=== PATIENT | male | born 1980 | race Caucasian/White ===

== ENCOUNTER 2022-02-16 18:22 | Emergency (ER) | payer BC, SELFPAY ==
[2022-02-16 19:05] VITALS: BP 148/99; PULSE 62; RESP 17; TEMP 37.1; O2SAT 98; BMI 31.5
--- NOTE | 2022-02-16 19:18 | HMH.EDUTC ---
[facility] [place] Disposition Clinical Impression: Sinusitis Qualifiers: Sinusitis location: unspecified location Chronicity: acute Recurrence: non-recurrent Qualified Code(s): J01.90 - Acute sinusitis, unspecified Disposition: Home, Self-Care Condition on Discharge: Good Instructions: DI for Sinusitis Additional Instructions: Drink plenty of fluids. Take tylenol or ibuprofen for pain or fever. Take the medications as directed. Follow up with your regular doctor. GO TO THE ER FOR ANY WORSENING SYMPTOMS Prescriptions: methylPREDNISolone [Medrol] 4 mg PO DIRECTED 6 Days #21 packet Transmission Status: Received by [id number] guaiFENesin [Mucinex 600mg tablet] 1 - 2 tab PO BIDP PRN #30 tab PRN Reason: Congestion Transmission Status: Received by [id number] Azithromycin [Z-Dimas 250mg Tab*] 250 mg PO UD DOSE PK #6 tab Transmission Status: Received by [id number] Referrals: Provider,Referral, MD [Primary Care Provider] - Medical Decision Making - Medical Records Medical records reviewed: No: I reviewed the patient's medical records. - Blanye Inquiry Pt receiving controlled substance: No Vital Signs: 02/16/22 19:05 02/16/22 19:24 Temperature 98.7 F 98.7 F Temperature Source Temporal Artery Scan Pulse Rate 62 Pulse Rate [Left] 62 Respiratory Rate 17 17 Blood Pressure 148/99 H Blood Pressure [Left Arm] 148/99 H Blood Pressure Mean [Left Arm] 115 Blood Pressure Source [Left Arm] Automatic Cuff Blood Pressure Position [Left Arm] Sitting 02 Sat by Pulse Oximetry 98 Oxygen Delivery Method Room Air [facility] [place] HPI - General Stated complaint: runny nose Time Seen by Provider: 02/16/22 19:15 Mode of Arrival: Ambulatory Source of Information: Patient Limitations: No Limitations Description of Symptoms (Recalled from Triage Doc. by RN): Patient reports he has had sinus symtoms that consist of nasal drainage, throat drainage, headache and stuffy nose for two weeks now. Patient denies fever. He reports his has had same symptoms and was seen here last night HEENT Symptoms (Recalled from RN notes): Yes (headache, stuffy nose) Resp Symptoms (Recalled from RN notes): Yes (nasal and throat drainage) Skin Symptoms (Recalled from RN notes): No MS Symptoms (Recalled from RN notes): No Functional Status (Recalled from RN notes): na - History of Present Illness Provider Complaint: He reports that he has had sinus congestion and sinus infection symptoms for the past 2 week. s - Related Data Home Medications Medication Instructions Recorded Confirmed Atorvastatin Calcium [Lipitor 40mg 40 mg PO HS 02/16/22 02/16/22 Tablet*] Pantoprazole Sodium 40 mg PO DAILY 02/16/22 02/16/22 Previous Rx's Medication Instructions Recorded Azithromycin [Z-Dimas 250mg Tab*] 250 mg PO UD DOSE PK #6 tab 02/16/22 guaiFENesin [Mucinex 600mg tablet] 1 - 2 tab PO BIDP PRN #30 tab 02/16/22 methylPREDNISolone [Medrol] 4 mg PO DIRECTED 6 Days #21 02/16/22 packet Allergies Allergy/AdvReac Type Severity Reaction Status Date / Time No Known Allergies Allergy Verified 02/16/22 19:09 - Worker's Comp Is this a Worker's Comp case?: No [facility] History - Hepatitis A Screen Attestation statement:: This patient has been screened for Hepatitis A risk factors. I have reviewed the patient's past medical history: Yes ROS Obtained: Yes All systems reviewed & no additional complaints - Constitutional Constitutional: Denies chills, Denies fever(s), Reports poor appetite, Reports malaise - Eyes Eyes: Denies eye discharge - ENT Ears, Nose, Mouth, and Throat: Reports as per HPI - Cardiovascular Cardiovascular: Denies chest pain - Respiratory Respiratory: Denies chest congestion, Reports cough Physical Exam - General General appearance: alert, in no apparent distress - Head Head exam: atraumatic, normocephalic, normal inspection - Eye Eye exam: Present: normal appe
[2022-02-16 19:24] VITALS: BP 148/99; PULSE 62; RESP 17; TEMP 37.1
== END 2022-02-16 19:35 | disposition home or self-care (01) ==
PROVIDERS: Emergency Provider Nurse Practitioner Family
DX: J01.90 Acute sinusitis, unspecified (principal)
CPT/HCPCS: 99212; G0463

== ENCOUNTER 2022-07-22 16:49 | Emergency (ER) | payer BC, SELFPAY ==
[2022-07-22 17:20] VITALS: BP 131/87; PULSE 83; RESP 18; TEMP 37.1; O2SAT 98; BMI 30.7
--- NOTE | 2022-07-22 17:27 | XR_ITS ---
PROCEDURE INFORMATION: Exam: XR Chest Exam date and time: 07/22/2022 5:21 PM Age: 41 years old Clinical indication: Cough TECHNIQUE: Imaging protocol: Radiologic exam of the chest. Views: 2 views. COMPARISON: No relevant prior studies available. FINDINGS: Lungs: Unremarkable. No consolidation. Pleural spaces: Unremarkable. No pleural effusion. No pneumothorax. Heart/Mediastinum: Unremarkable. No cardiomegaly. Bones/joints: Unremarkable. IMPRESSION: No acute findings.
--- NOTE | 2022-07-22 17:39 | EXP.UTC ---
Discharge Plan Disposition Patient Disposition: Home, Self-Care Condition: Good Prescriptions Prescriptions: New azithromycin [azithromycin] 250 mg tablet 250 mg PO DIRECTED Qty: 6 0RF Rx Instructions: Take two (2) tablets on day #1, then one (1) tablet day #2 thru #5 No Action atorvastatin 40 MG tablet 40 mg PO HS pantoprazole 40 MG tablet,delayed release (DR/EC) 40 mg PO DAILY azithromycin 250 MG tablet 250 mg PO UD DOSE PK Qty: 6 0RF Rx Instructions: Take two (2) tablets today, then one (1) tablet days #2 thru #5 methylprednisolone 4 MG tablets,dose pack 4 mg PO DIRECTED 6 Days Qty: 21 0RF guaifenesin 600 MG tablet extended release 12hr 1 - 2 tab PO BIDP PRN (Reason: Congestion) Qty: 30 0RF Referrals Follow up/Referrals: Provider,Referral, MD [Primary Care Provider] - See instructions Activity Restrictions/Add. Instructions Additional Instructions/Restrictions: Start antibiotic today. Be sure to complete entire prescription even if feeling better Tylenol and ibuprofen as needed for pain or fever Humidifier/vaporizer/hot steamy shower Follow-up with primary care tomorrow. Follow-up immediately in the ER of the [facility] for new or worsening symptoms or no noticeable improvement over the next 48-72 hours. Stop smoking Clinical Impressions Clinical Impression: Bronchitis Instructions Patient Instructions: Acute Bronchitis Discharge ED Provider: Tobi ([facility])Arcelia [place] HPI General Stated complaint: tamika Mode of Arrival: Ambulatory Source of Information: Patient Limitations: No Limitations Time Seen by Provider: 07/22/22 17:40 Description of Symptoms (Recalled from Triage Doc. by RN): PATIENT C/O CONGESTION AND COUGH SINCE SUNDAY HEENT Symptoms (Recalled from RN notes): No Resp Symptoms (Recalled from RN notes): Yes Skin Symptoms (Recalled from RN notes): No MS Symptoms (Recalled from RN notes): No Functional Status (Recalled from RN notes): WNL History of Present Illness Provider Complaint: 41 yr old male presents for cough, soa, wheezing and congestion since and seems to be worsening Related Data Home Medications Medication Instructions Recorded Confirmed atorvastatin 40 mg tablet 40 mg PO HS Cholesterol 02/16/22 02/16/22 pantoprazole 40 mg tablet,delayed 40 mg PO DAILY acid reflux 02/16/22 02/16/22 release Previous Rx's Medication Instructions Recorded azithromycin 250 mg tablet 250 mg PO UD DOSE PK #6 tabs 02/16/22 guaifenesin 600 mg tablet, 1 - 2 tab PO BIDP PRN Congestion 02/16/22 extended release 12 hr #30 tabs methylprednisolone 4 mg tablets in 4 mg PO DIRECTED 6 days #21 02/16/22 a dose pack packets azithromycin 250 mg tablet 250 mg PO DIRECTED #6 tabs 07/22/22 Allergies Allergy/AdvReac Type Severity Reaction Status Date / Time No Known Allergies Allergy Verified 02/16/22 19:09 Worker's Comp Is this a Worker's Comp case?: No [facility] Disclaimer: The information contained in this section may have been updated after the patient was seen, as this information can be updated by other users. 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) Smoking Status: Unknown if ever smoked alcohol intake: never current occupational status: other Travel in the last 8 weeks: None ROS Obtained: Yes All systems reviewed & no additional complaints except as documented Constitutional Constitutional: Reports system reviewed and no additional complaints, except as documented and Reports as per HPI Eyes Eyes: Reports system reviewed and no additional complaints, except as documented ENT Ears, Nose, Mouth, and Throat: Reports system reviewed and no additional complaints, except as documented and Reports nasal congestion Cardiovascular Cardiovascular:
[2022-07-22 18:00] VITALS: BP 131/87; PULSE 83; RESP 18; TEMP 37.1; O2SAT 98
== END 2022-07-22 18:02 | disposition home or self-care (01) ==
PROVIDERS: Emergency Provider Nurse Practitioner Family
DX: J40 Bronchitis, not specified as acute or chronic (principal)
CPT/HCPCS: 71046; 99212; G0463

== ENCOUNTER 2022-11-23 17:14 | Emergency (ER) | payer BC, SELFPAY ==
[2022-11-23 18:00] VITALS: BP 141/84; PULSE 81; RESP 20; TEMP 36.6; O2SAT 96; BMI 31.5
--- NOTE | 2022-11-23 18:11 | EXP.UTC ---
Discharge Plan Disposition Patient Disposition: Home, Self-Care Condition: Good Prescriptions Prescriptions: New benzonatate [benzonatate] 100 mg capsule 100 mg PO TIDP PRN (Reason: Cough) Qty: 30 0RF methylprednisolone 4 mg Tablets,Dose Pack 4 mg PO DIRECTED Qty: 21 0RF amoxicillin-pot clavulanate 875-125 mg Tablet 1 tab PO Q12H Qty: 20 0RF No Action atorvastatin 40 MG tablet 40 mg PO HS pantoprazole 40 MG tablet,delayed release (DR/EC) 40 mg PO DAILY Referrals Follow up/Referrals: Provider,Referral, MD [Primary Care Provider] - See instructions Activity Restrictions/Add. Instructions Additional Instructions/Restrictions: Drink plenty of fluids. Take tylenol or ibuprofen for pain or fever. Take the medications as directed. Follow up with your regular doctor. GO TO THE ER FOR ANY WORSENING SYMPTOMS Clinical Impressions Clinical Impression: Sinusitis Instructions Patient Instructions: Sinusitis, DI for Sinusitis Discharge ED Provider: Hernandez Rush [facility] General Stated complaint: cough [place] Time Seen by Provider: 11/23/22 18:11 History of Present Illness Provider Complaint: He c/o sore throat, left ear pain, and left sided sinus congestion for the past 3 days. Related Data Home Medications Medication Instructions Recorded Confirmed atorvastatin 40 mg tablet 40 mg PO HS Cholesterol 02/16/22 11/23/22 pantoprazole 40 mg tablet,delayed 40 mg PO DAILY acid reflux 02/16/22 11/23/22 release Previous Rx's Medication Instructions Recorded amoxicillin 875 mg-potassium 1 tab PO Q12H #20 tabs 11/23/22 clavulanate 125 mg tablet benzonatate 100 mg capsule 100 mg PO TIDP PRN Cough #30 caps 11/23/22 methylprednisolone 4 mg tablets in 4 mg PO DIRECTED #21 tabs 11/23/22 a dose pack Allergies Allergy/AdvReac Type Severity Reaction Status Date / Time No Known Allergies Allergy Verified 11/23/22 18:16 [facility] Disclaimer: The information contained in this section may have been updated after the patient was seen, as this information can be updated by other users. 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 History of gastroesophageal reflux (GERD) Hyperlipidemia Social History (Reviewed 11/23/22 @ 19:00 by POLO Arechiga Smoking Status: Unknown if ever smoked alcohol intake: never current occupational status: other Travel in the last 8 weeks: None ROS Obtained: Yes All systems reviewed & no additional complaints except as documented Constitutional Constitutional: Reports poor appetite Eyes Eyes: Reports system reviewed and no additional complaints, except as documented ENT Ears, Nose, Mouth, and Throat: Reports as per HPI Cardiovascular Cardiovascular: Reports system reviewed and no additional complaints, except as documented and Denies chest pain Respiratory Respiratory: Denies shortness of breath, Denies chest congestion, Reports cough, Denies stridor and Denies wheezing Gastrointestinal Gastrointestingal: Reports system reviewed and no additional complaints, except as documented; Denies abdominal pain, diarrhea or vomiting Musculoskeletal Musculoskeletal: Reports system reviewed and no additional complaints, except as documented and Denies arthralgias Integumentary/Breasts Skin/Breast: Reports system reviewed and no additional complaints, except as documented and Denies rash Neurologic Neurologic: Denies paresthesias Allergic/Immunologic Allergic/Immunologic: Denies wheezing Physical Exam General General appearance: alert and in no apparent distress Eye Eye exam: Present normal appearance, PERRL and EOMI ENT ENT exam: Present mucous membranes moist and normal external ear exam Expanded ENT Exam External ear exam: Present normal external inspection TM/Canal exam: Bilateral TM: erythema and bulging Nose exam: Absent sinus tenderness Nasal speculum exam: Bilateral: normal Mouth exam: Pres
[2022-11-23 18:17] LABS: UTC Strep Screen (Rapid) Negative (Negative)
[2022-11-23 18:39] VITALS: BP 141/84; PULSE 81; RESP 20; TEMP 36.6; O2SAT 96
== END 2022-11-23 18:39 | disposition home or self-care (01) ==
PROVIDERS: Emergency Provider Nurse Practitioner Family
DX: J01.90 Acute sinusitis, unspecified (principal)
CPT/HCPCS: 87880; 99212; 99214; G0463

== ENCOUNTER 2023-03-25 13:05 | Emergency (ER) | payer BC, SELFPAY ==
--- NOTE | 2023-03-25 13:20 | EXP.UTC ---
Discharge Plan Disposition Patient Disposition: Home, Self-Care Condition: Good Prescriptions Prescriptions: New cyclobenzaprine 10 mg Tablet 10 mg PO BID PRN (Reason: Muscle Spasm) Qty: 20 0RF methylprednisolone 4 mg Tablets,Dose Pack 4 mg PO DIRECTED Qty: 21 0RF No Action benzonatate [benzonatate] 100 mg capsule 100 mg PO TIDP PRN (Reason: Cough) Qty: 30 0RF methylprednisolone 4 mg Tablets,Dose Pack 4 mg PO DIRECTED Qty: 21 0RF amoxicillin-pot clavulanate 875-125 mg Tablet 1 tab PO Q12H Qty: 20 0RF atorvastatin 40 MG tablet 40 mg PO HS pantoprazole 40 MG tablet,delayed release (DR/EC) 40 mg PO DAILY Referrals Follow up/Referrals: Provider,Referral, MD [Primary Care Provider] - See instructions Activity Restrictions/Add. Instructions Additional Instructions/Restrictions: Go home and rest. It would be best if you rested tomorrow too. No heavy lifting. No twisting. Take the oral medications as directed. The muscle relaxer (cyclobenzaprine--Flexeril) will make you drowsy, so don't drive or operate heavy machinery after taking it. Don't start the oral steroids (medrol dose pack) until tomorrow, since you had the shots in here today. Follow up with your regular doctor. GO TO THE ER FOR ANY WORSENING SYMPTOMS OR CONCERN, ESPECIALLY BOWEL OR BLADDER ISSUES, SADDLE AREA NUMBNESS, FEVER, ETC Clinical Impressions Clinical Impression: Low back pain with left-sided sciatica Stand Alone Forms Stand Alone Forms: Work/School Release Discharge ED Provider: Hernandez Rush [facility] General Stated complaint: lower back pain, unknown origin Time Seen by Provider: 03/25/23 13:20 History of Present Illness Provider Complaint: He states that for the past 1 week he has had low back pain that radiates down his right leg. He denies any recent falls or injury. He denies any saddle area numbness. He denies any bowel or bladder problems. Related Data Home Medications Medication Instructions Recorded Confirmed atorvastatin 40 mg tablet 40 mg PO HS Cholesterol 02/16/22 11/23/22 pantoprazole 40 mg tablet,delayed 40 mg PO DAILY acid reflux 02/16/22 11/23/22 release Previous Rx's Medication Instructions Recorded amoxicillin 875 mg-potassium 1 tab PO Q12H #20 tabs 11/23/22 clavulanate 125 mg tablet benzonatate 100 mg capsule 100 mg PO TIDP PRN Cough #30 caps 11/23/22 methylprednisolone 4 mg tablets in 4 mg PO DIRECTED #21 tabs 11/23/22 a dose pack cyclobenzaprine 10 mg tablet 10 mg PO BID PRN Muscle Spasm #20 03/25/23 tabs methylprednisolone 4 mg tablets in 4 mg PO DIRECTED #21 tabs 03/25/23 a dose pack Allergies Allergy/AdvReac Type Severity Reaction Status Date / Time No Known Allergies Allergy Verified 11/23/22 18:16 [facility] Disclaimer: The information contained in this section may have been updated after the patient was seen, as this information can be updated by other users. 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 History of gastroesophageal reflux (GERD) Hyperlipidemia Social History Smoking Status: Unknown if ever smoked alcohol intake: never current occupational status: other Travel in the last 8 weeks: None ROS Obtained: Yes All systems reviewed & no additional complaints except as documented Constitutional Constitutional: Denies chills and Denies fever(s) Eyes Eyes: Denies eye discharge ENT Ears, Nose, Mouth, and Throat: Denies dizziness, Denies otalgia, Denies neck pain and Denies sore throat Cardiovascular Cardiovascular: Denies chest pain Respiratory Respiratory: Denies shortness of breath, Denies chest congestion, Denies cough, Denies stridor and Denies wheezing Gastrointestinal Gastrointestingal: Denies nausea or vomiting Musculoskeletal Musculoskeletal: Reports as per HPI and Denies neck pain Integumentary/Breasts Skin/B
[2023-03-25 13:25] VITALS: BP 112/86; PULSE 74; RESP 20; TEMP 36.8; O2SAT 96; BMI 31.5
[2023-03-25 13:44] VITALS: BP 112/86; PULSE 74; RESP 20; TEMP 36.8; O2SAT 96
== END 2023-03-25 13:56 | disposition home or self-care (01) ==
PROVIDERS: Emergency Provider Nurse Practitioner Family
DX: M54.42 Lumbago with sciatica, left side (principal); K21.9 Gastro-esophageal reflux disease without esophagitis; E78.5 Hyperlipidemia, unspecified
CPT/HCPCS: 96372; 99212; 99214; G0463

== ENCOUNTER 2023-11-11 08:59 | Emergency (ER) | payer BC, SELFPAY ==
[2023-11-11 09:10] VITALS: BP 130/82; PULSE 78; RESP 18; TEMP 36.9; O2SAT 97; BMI 28.3
--- NOTE | 2023-11-11 09:26 | ED_ITS ---
Discharge Plan Disposition Patient Disposition: Home, Self-Care Condition: Good Prescriptions Prescriptions: New benzonatate 100 mg capsule 100 mg PO TID PRN (Reason: cough) Qty: 30 0RF methylprednisolone [Medrol (Dimas)] 4 mg tablets,dose pack See Rx Instructions .Route .COMPLEX 6 Days Qty: 21 0RF Rx Instructions: taper pack; No Action atorvastatin 40 MG tablet 40 mg PO HS pantoprazole 40 MG tablet,delayed release (DR/EC) 40 mg PO DAILY Referrals Follow up/Referrals: Provider,Referral, [Primary Care Provider] - See instructions Activity Restrictions/Add. Instructions Additional Instructions/Restrictions: *Monitor Temp, Over the counter Motrin or Tylenol as directed/as needed Tylenol every 4 hours and Motrin every 6 hours (as long as your family doctor has told you that you can take it) for fever or pain. and straight to ER if unable to lower temp less than 101.0 after medication given *Warm salt water gargles may help to soothe the throat *Throat Lozenges? *Warm fluids like tea with honey may help to soothe the throat? *Sleep elevated *Humidifier/Vaporizer Your throat swab was sent for culture. Those results are typically sent to your primary care. Be sure to follow up in 2-3 days with your family doctor/primary care physician if no improvement so they can review those result and treat if necessary. If you don?t have a primary care doctor, I recommend you get one but in the mean time, you will have to return to a walk in clinic Follow up IMMEDIATELY for new or worsening symptoms or no Noticeable improvement over the next 48-72 hours. 911 for difficulty breathing or swallowing Clinical Impressions Clinical Impression: Allergic rhinitis Instructions Patient Instructions: DI for Allergic Rhinitis, Allergic Rhinitis Discharge ED Provider: Le Asencio [facility] General Stated complaint: congestion,headache Mode of Arrival: Ambulatory Source of Information: Patient Limitations: No Limitations Time Seen by Provider: 11/11/23 09:27 Description of Symptoms (Recalled from Triage Doc. by RN): PATIENT C/O CONGESTION, HEADACHE, BODY ACHES AND CHILLS X 3 DAYS HEENT Symptoms (Recalled from RN notes): Yes Resp Symptoms (Recalled from RN notes): No Skin Symptoms (Recalled from RN notes): No MS Symptoms (Recalled from RN notes): No Functional Status (Recalled from RN notes): WNL History of Present Illness Provider Complaint: Patient states that he hasnt felt well for for the last 3-4 days States that he has been nasal congestion, chills, body aches, headache and scratchy throat but no fever, States that today his throat was hurting worse from all the drainage so he came in to get checked Related Data Home Medications Medication Instructions Recorded Confirmed atorvastatin 40 mg tablet 40 mg PO HS Cholesterol 02/16/22 11/11/23 pantoprazole 40 mg tablet,delayed 40 mg PO DAILY acid reflux 02/16/22 11/11/23 release Previous Rx's Medication Instructions Recorded benzonatate 100 mg capsule 100 mg PO TID PRN cough #30 caps 11/11/23 methylprednisolone 4 mg tablets in See Rx Instructions .Route 11/11/23 a dose pack (Medrol (Dimas)) .COMPLEX 6 days #21 tabs Allergies Allergy/AdvReac Type Severity Reaction Status Date / Time No Known Allergies Allergy Verified 11/23/22 18:16 Worker's Comp Is this a Worker's Comp case?: No [facility] Disclaimer: The information contained in this section may have been updated after the patient was seen, as this information can be updated by other users. 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 History of gastroesophageal reflux (GERD) Hyperlipidemia Social History Smoking Status: Unknown if ever smoked alcohol intake: never current occupational status: other Travel in the last 8 weeks: None ROS Obtained: Yes All systems reviewed & no additional complaints except as documented and Yes Systems reviewed as appropriate & no additional complaints except as documented Constitutional Constitutional: Reports system reviewed and no additional complaints, except as documented, Reports as per HPI, Reports body ache, Reports chills and Reports headache(s) ENT Ears, Nose, Mouth, and Throat: Reports system reviewed and no additional complaints, except as documented, Reports as per HPI, Reports headache(s), Reports nasal congestion, Reports nasal discharge and Reports sore throat Cardiovascular Cardiovascular: Reports system reviewed and no additional complaints, except as documented and Reports as per HPI Respiratory Respiratory: Reports system reviewed and no additional complaints, except as documented and Reports as per HPI Gastrointestinal Gastrointestingal: Reports system reviewed and no additional complaints, except as documented and as per HPI Neurologic Neurologic: Reports headache(s) Physical Exam General General appearance: alert and in no apparent distress ENT ENT exam: Present mucous membranes moist Expanded ENT Exam Nose exam: Absent sinus tenderness Throat exam: Present other (Pharyngeal erythema noted with PND) Respiratory Respiratory exam: Present normal lung sounds bilaterally; Absent respiratory distress or wheezes Cardiovascular Cardiovascular exam: Present regular rate, normal rhythm and normal heart sounds Neurological Exam Neurological exam: Present alert, oriented X3 and normal gait Medical Decision Making Blayne Inquiry Pt receiving controlled substance: No Blay[place] was queried for this patient: No Vital Signs: 11/11/23 09:10 Temperature 98.5 F Temperature Source Oral Pulse Rate [Left Brachial] 78 Respiratory Rate 18 Blood Pressure [Left Arm] 130/82 Blood Pressure Mean [Left Arm] 98 Blood Pressure Source [Left Arm] Automatic Cuff Blood Pressure Position [Left Arm] Sitting 02 Sat by Pulse Oximetry 97 Oxygen Delivery Method Room Air Lab Data Lab results reviewed: Yes I reviewed the patient's lab results.
[2023-11-11 09:43] LABS: UTC Influenza A Antigen Negative (Negative); UTC Influenza B Antigen Negative (Negative); UTC Strep Screen (Rapid) Negative (Negative)
[2023-11-11 09:44] VITALS: BP 130/82; PULSE 78; RESP 18; TEMP 36.9; O2SAT 97
== END 2023-11-11 09:46 | disposition home or self-care (01) ==
PROVIDERS: Emergency Provider Nurse Practitioner
DX: J30.9 Allergic rhinitis, unspecified (principal); R51.9 Headache, unspecified; R07.0 Pain in throat; R09.82 Postnasal drip; R09.81 Nasal congestion; K21.9 Gastro-esophageal reflux disease without esophagitis; E78.5 Hyperlipidemia, unspecified
CPT/HCPCS: 87804; 87880; 99212; 99214; G0463

== ENCOUNTER 2024-05-09 09:25 | Outpatient (CLI) | payer BC, SELFPAY ==
[2024-05-09 09:55] LABS: Basophils # 0.1 K/mm3 (0-0.2); Basophils % 1.2 % (0.1-2.0); Eosinophils # 0.1 K/mm3 (0.0-0.4); Eosinophils % 1.4 % (0.1-12.0); Hematocrit 48.8 % (42.0-52.0); Hemoglobin 15.7 g/dL (14.1-18.0); Lymphocytes # 2.5 K/mm3 (0.7-4.5); Lymphocytes % 31.7 % (10-50); Mean Corpuscular HGB Conc 32.2 g/dL (31.8-35.4); Mean Corpuscular Hemoglobin 28.3 pg (27.0-31.2); Mean Corpuscular Volume 87.8 fl (80-94); Mean Platelet Volume 7.5 fl (7.4-10.4); Monocytes # 0.6 K/mm3 (0.1-1.0); Neutrophils # 4.7 K/mm3 (1.8-7.8); Neutrophils % 58.8 % (37.0-80.0); Platelet Count 353 K/mm3 (142-424); Red Blood Count 5.56 M/mm3 (4.60-6.20); Red Cell Distribution Width 13.9 % (11.5-17.5)
[2024-05-09 10:02] LABS: Hemoglobin A1C 5.6 % (4.0-6.0)
[2024-05-09 10:09] LABS: Alanine Aminotransferase 42 U/L (12-78); Albumin Level 4.3 g/dl (3.5-5.0); Albumin/Globulin Ratio 1.5 (1.1-1.8); Alkaline Phosphatase 71 U/L (38-126); Anion Gap 5.3 mEq/L (5-15); Aspartate Amino Transferase 30 U/L (17-59); Bilirubin,Total 0.8 mg/dl (0.2-1.3); Blood Urea Nitrogen 12 mg/dl (9-20); Calcium 9.2 mg/dl (8.4-10.2); Carbon Dioxide 32 mmol/L (22.0-30.0); Chloride 104 mmol/L (98-107); Chol/HDL Ratio 3.8 (1-3.5); Cholesterol 178 mg/dl (140-200); Estimated Glomerular Filt Rate 91 ml/min (>60); GFR (African American) 110 ML/MIN (>60); Globulin 2.8 g/dL (1.3-3.2); Glucose 95 mg/dl (74-100); HDL Cholesterol 47 mg/dl (40-60); Potassium 4.3 mmoL/L (3.5-5.1); Sodium 137 mmol/L (136-145); Total Protein,Serum 7.1 g/dl (6.3-8.2); Triglycerides 176 mg/dl (30-150); VLDL Cholesterol 35 mg/dL (0-40)
[2024-05-09 10:21] LABS: Direct LDL Cholesterol 90.95 mg/dL (100-129)
[2024-05-09 10:39] LABS: Prostate Specific Ag Screen 1.1 ng/ml (0.0-4.0); Thyroid Stimulating Hormone 1.02 uIU/mL (0.465-4.68)
[2024-05-09 14:34] LABS: HIV (1&2) Antibody Rapid NONREACTIVE (NONREACTIVE)
[2024-05-09 15:19] LABS: 25-OH Vitamin D, Total 22.1 ng/mL (30-100)
[2024-05-10 08:17] LABS: HCV Ab Non Reactive (Non Reactive)
== END 2024-05-09 23:59 | disposition home or self-care (01) ==
LOC: LAB 09:27
PROVIDERS: PCP Student in an Organized Health Care Education/Training Program; Visit Provider Student in an Organized Health Care Education/Training Program
DX: Z13.21 Encounter for screening for nutritional disorder (principal); Z13.29 Encounter for screening for other suspected endocrine disorder; Z11.59 Encounter for screening for other viral diseases; Z12.5 Encounter for screening for malignant neoplasm of prostate; Z11.4 Encounter for screening for human immunodeficiency virus [HIV]; E78.5 Hyperlipidemia, unspecified; Z13.1 Encounter for screening for diabetes mellitus
CPT/HCPCS: 36415; 80050; 80053; 80061; 82306; 83036; 84443; 85025; 86803; 87389; G0103

== ENCOUNTER 2024-11-02 16:48 | Outpatient (CLI) | payer BC, SELFPAY ==
--- NOTE | 2024-11-02 17:02 | XR_ITS ---
PROCEDURE INFORMATION: Exam: XR Lumbosacral Spine Exam date and time: 11/02/2024 4:54 PM Age: 44 years old Clinical indication: Low back pain TECHNIQUE: Imaging protocol: Radiologic exam of the lumbosacral spine. Views: 2 or 3 views. COMPARISON: No relevant prior studies available. FINDINGS: Bones/joints: Mild L5 on S1 anterolisthesis. Chronic L5 pars interarticularis defects. Degenerative disc and joint space changes most pronounced at L5/S1. Vertebral body heights grossly preserved. Soft tissues: Unremarkable. IMPRESSION: Degenerative changes with chronic L5/S1 spondylolisthesis.
== END 2024-11-02 23:59 | disposition home or self-care (01) ==
LOC: RAD 16:50
PROVIDERS: Visit Provider Student in an Organized Health Care Education/Training Program
DX: M43.16 Spondylolisthesis, lumbar region (principal); M54.50 Low back pain, unspecified
CPT/HCPCS: 72100

== ENCOUNTER 2024-12-26 10:49 | Outpatient (RCR) | payer BC, SELFPAY ==
--- NOTE | 2024-12-26 14:38 | HMH.PTOPEV ---
PT Outpatient Evaluation Rehab PT Outpatient Evaluation Start: 12/26/24 10:58 Freq: Status: Active Protocol: Document 12/26/24 10:58 KRISTAN (Rec: 12/26/24 14:38 KRISTAN [id number]) E-signed By Ector Grier, PT Outpatient Therapy Subjective History Subjective History Alverto is a 44 y/o male who presents with low back pain. ~ 1.5 years ago, he hurt his back bending down and could barely walk. Treated at urgent care with steroids/anti- inflammatories and it came back ~1 month ago. X-Ray showed spondylolisthesis L5/S1 . Pain greatly depends on activity level at work, especially bending, lifting, and stepping up/down. 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 His pain goes down his legs, usually stops around knees but can go down to ankle and more on R side. He states he cannot sit on couch as it is deep seated, and has the worst pain with that. States during lifting or carrying stuff, his back pain can get up to 10 /10 for a few seconds and feels like it gives out . Kevin snita on the R. Pt states that his goals for therapy include managing the pain so he can work without pain. Chief Complaint Pain Symptom Type Sharp,Dull,Numbness,Shooting Symptoms Relieved By Rest/Positioning Symptoms Aggravated By Sitting,Bending/Stooping, Physical Activity Prior Functional Limitations None Current Functional Limitations Reaching,Lifting,Housework, Sitting,Squatting,Bending/ Stooping Symptom Description Activity Dependent Level of pain today (0-10) 0 Pain scale - at its best (0-10) 0 Pain scale - at its worst (0-10) 10 Lumbopelvic Eval Palapation tenderness right paraspinal tenderness Yes: 1-2/4 TTP Lumbar/Sacral Palpation Findings Muscle Guarding Lumbar/Sacral Palpation Overall Comment Tender R paraspinals ~L4-L5 Range of Motion Lumbar Spine Active Flexion Range of 0-95 Motion (degrees) Lumbar Spine Active Extension Range of 0-25 Motion (degrees) Left Lumbar Spine Lateral Flexion Active 0-10 Range of Motion (degrees) Right Lumbar Spine Lateral Flexion 0-20 Active Range of Motion (degrees) Lumbar Spine ROM Limitations Soft Tissue Tightness Manual Muscle Test Bilateral Knee Extension Strength Grade 5 Normal Knee Flexion Strength Grade 5 Normal Hip Flexion Strength Grade 5 Normal Hip Abduction Strength Grade 5 Normal Hip Adduction Strength Grade 5 Normal Ankle Dorsiflexion Strength Grade 5 Normal Special Tests Hip Scouring (Quadrant) Test Negative Left,Negative Right Hip Perry (MIRNA) Test Negative Left,Negative Right Sciatic Nerve Tension Test Negative Left,Negative Right Bilateral Straight Leg Raise Test Negative Sacroiliac Joint Compression Test Negative Left,Negative Right Sacroiliac Joint Distraction Test Negative Left,Negative Right Lumbar Long [place]clay Distraction Test/Manual Negative Traction Oswestry Index Section 1 Pain Intensity The pain comes and goes and is severe Section 2 Personal Care (Washing,Dresing) increase the pain and I find it necessary to change my way of doing it Section 3 Lifting I can lift heavy weights, but it gives me extra pain Section 4 Walking I have some pain when walking but it does not increase with distance Section 5 Sitting I can sit in my favorite chair for as long as I like Section 6 Standing I have some pain on standing, but it does not increase with time Section 7 Sleeping Because of my pain, my normal night's sleep is less than 6 hours sleep Section 8 Social Life My social life is normal and gives me no extra pain Section 9 Traveling I get no pain when traveling Section 10 Changing Degreee of Pain My pain is neither getting better or worse Score and Risk Level Oswestry Sc 16 Oswestry Risk Level Moderate Disability Miscellaneous Dx PT Eval Objective Objective Supine R Hip Flexion PROM and R Hip ABD MMT provoked R sided back pain Outpatient Therapy Assessment Impairments Problems/Impairmments Palpation Tenderness,Impaired Range of Motion,Impaired Sitting,Impaired Squatting, Impaired Bending,Impaired Work Activities,Subjective C/O Pain Prognosis Rehab Potential Good Comment Patient presents with signs and symptoms consistent with R sided low back pain with radiating symptoms. Imaging showed spondylolisthesis of L5 /S1. Pain and sx appear to worsen with lumbar flexion activities. Patient impairments include back and hip musculature tightness and weakness due to pain. 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 Clinical Impression Consistent with Diagnosis Yes Additional details: M54.50 Low back pain, unspecified Short Term Goals Number of Weeks 4 Decreased Palpation Tenderness Yes: 0/4 TTP R paraspinals lumbar region Increase Range of Motion Yes: B lateral flexion increase 5 deg Restore Ability to Lift Objects to Waist Yes: Pain <5/10 at worst when Level picking up objects at work Improve Tolerance to Work Activities Yes: Pain <8/10 at worst during 1 physically demanding work week Improve Oswestry Score Yes: 13 Decrease Subjective C/O Pain Yes: Worst 8/10 Patient to be Ind w/ Advanced HEP Yes Intermediate Goals Number of Weeks 8 Increase Range of Motion Yes: Lateral flexion increase in 10 deg AROM Increase Ability to Sit Yes: Sit on couch at home for 30 min with <5/10 pain Restore Ability to Lift Objects to Yes: Pain <3/10 lifting Shoulder Level objects at end of work week Improve Tolerance to Work Activities Yes: Pain at worst 5/10 after physically demanding work week Improve Oswestry Score Yes: 10 Decrease Subjective C/O Pain Yes: Worst 5/10 Patient to be Ind w/ Advanced HEP Yes Outpatient Therapy Plan of Care Treatment Plan May Include Therapeutic Exercise Including Home Yes Exercise Program Manual Therapy Techniques Yes Neuromuscular Re-education Yes Therapeutic Activities to Return to Yes Previous Functional/Work Level Gait Training Yes ADL/Self Care Education Yes Mechanical Traction Yes Dry Needling Yes Thermal Modalities Yes Electrical Stimulation Yes Ultrasound/Phonophoresis Yes Iontophoresis Yes Eval/Re-Eval Yes Frequency Times per week 2-3 Duration Number of Weeks 8 Addendums This patient is a candidate for social No or vocational rehab? Patient/Guardian verbally acknowledges Yes understanding of treatment program and consents to further treatment? Patient/Guardian verbally acknowledges Yes understanding of diagnosis, prognosis and goals for treatment? Eval Complexity PT Charges 65099 - High Complexity Shoulder/Elbow Eval Shoulder Objective Measurements Elbow Objective Measurements PHYSICIAN CERTIFICATION: I certify the specified therapy services for Alverto Thomson are required, authorized, and reviewed every 30 days.
== END 2024-12-26 23:59 | disposition home or self-care (01) ==
LOC: PT 10:49
PROVIDERS: PCP Nurse Practitioner Family; Visit Provider Internal Medicine
DX: M54.42 Lumbago with sciatica, left side (principal)
CPT/HCPCS: 97163

== ENCOUNTER 2025-02-06 08:00 | Outpatient (RCR) | payer BC, SELFPAY ==
--- NOTE | 2025-01-30 08:52 | HMH.RHREAS ---
Rehab Reassessment Rehab OP Re-assessment Start: 01/16/25 10:18 Freq: Status: Active Protocol: Document 01/30/25 08:28 LOKI (Rec: 01/30/25 08:52 LOKI [id number]) E-signed By Sathish Becerar, PT Oswestry Index Section 1 Pain Intensity The pain comes and goes and is moderate Section 2 Personal Care ( increase the pain, but I manage not to change my way of Washing,Dresing) doing it Section 3 Lifting lifting heavy weights off the floor, but I can manage if they are Section 4 Walking I have some pain when walking but it does not increase with distance Section 5 Sitting I can sit in any chair for as long as I like Section 6 Standing I can stand as long as I want without pain Section 7 Sleeping I get pain in bed, but it does not prevent me from sleeping well Section 8 Social Life My social life is normal and gives me no extra pain Section 9 Traveling I get no pain when traveling Section 10 Changing Degreee of My pain fluctuates, but overall is definitely getting Pain better Score and Risk Level Oswestry Sc 10 Oswestry Risk Level Mild Disability Rehab Re-assessment Subjective Subjective Pt presents for reassessment this date. He reports 20- 30% improvement this date. Reports that he still has episodes of 10/10 pain, however they are becoming less frequent. Pt reports that he does his home exercises regularly and can definitely see that they are helping. The pt reports that he has been able to do his normal job duties but still reports intense pain, especially at the end of the day. Pt reports that he can sit as long as he would like without any pain. The pt reports that he would like to continue with PT. Objective Objective Notes MIGEL: 16 (10 on IE) TTP: 2/4 to R side Lumbar Paraspinals ROM - Lumbar flexion: 0-95 - Lumbar Extension: 0-25 - Lumbar Lateral flexion: R 15 L 25 Assessment Progress Assessment Slower Than Expected Assessment Notes The pt has undergone one month of skilled PT, however, he has only attended one treatment visit prior to this reassessment. Pt is responding well to home exercises, however he has not had enough direct care to showcase drastic improvements thus far. Pt has shown improvement in his MIGEL score, slight improvements in lumbar ROM and frequency of pain. The pt continues to present below his normal baseline and would continue to benefit from skilled PT to address his remaining impairments and to promote a return to his PLOF. Patient goals met ST,5,7 LT,5 Plan Plan Continue as per initial POC. Trial Lumbar Traction. Frequency of Therapy 1-2/week Duration of therapy 4 weeks Time and Billing Re-Eval Time 10 Re-Eval Billing 1 Units Charge for PT Yes reassessment? PHYSICIAN CERTIFICATION: I certify the specified therapy services for Alverto Thomson are required, authorized, and reviewed every 30 days.
== END 2025-02-06 23:59 | disposition home or self-care (01) ==
LOC: PT 08:00
PROVIDERS: Visit Provider Internal Medicine
DX: M54.42 Lumbago with sciatica, left side (principal)
CPT/HCPCS: 97012; 97014; 97035; 97110; 97164; G0283

== ENCOUNTER 2025-03-06 08:00 | Outpatient (RCR) | payer BC, SELFPAY ==
--- NOTE | 2025-03-06 08:55 | HMH.RHREAS ---
Rehab Reassessment Rehab OP Re-assessment Start: 02/20/25 07:59 Freq: Status: Active Protocol: Document 03/06/25 08:32 LOKI (Rec: 03/06/25 08:54 LOKI [id number]) E-signed By Sathish Becerra, PT Oswestry Index Section 1 Pain Intensity The pain comes and goes and is moderate Section 2 Personal Care ( my way of washing or dressing even though it causes Washing,Dresing) some pain Section 3 Lifting lifting heavy weights off the floor, but I can manage light to medium Section 4 Walking I have no pain when walking Section 5 Sitting I can sit in any chair for as long as I like Section 6 Standing I can stand as long as I want without pain Section 7 Sleeping Because of my pain, my normal night's sleep is less than 6 hours sleep Section 8 Social Life My social life is normal and gives me no extra pain Section 9 Traveling I get some pain when traveling, but none of my usual forms of travel m Section 10 Changing Degreee of My pain is getting better Pain Score and Risk Level Oswestry Sc 10 Oswestry Risk Level Mild Disability Rehab Re-assessment Subjective Subjective Pt reports that he is 50-60% improved this date. Reports that he is moreso learning what not to do. Reports that his episodes of pain continue to be episodic but severe. Reports 10/10 pain seldomly but reports that these episodes continue to become less frequent. The pt reports that he does believe that he is improving. Reports that he would like to continue PT for one more month. Pt reports that sitting gives him no difficulty. Continues to report difficulty lifting items at work. Objective Objective Notes MIGEL: 10 (10 on IE) TTP: 1/4 to R side Lumbar Paraspinals ROM - Lumbar flexion: 0-95 - Lumbar Extension: 0-30 - Lumbar Lateral flexion: R 25 L 25 Assessment Progress Assessment Slower Than Expected Assessment Notes Pt has undergone two months of skilled PT, consisting of exercises focused on improving Lumbar ROM, core stabilization and pain management. Pt is responding slower to skilled PT thus far. He has demonstrated improvements in his pain levels, continued improvement in his MIGEL score, improved motion. He has not met any other of his stated goals. Pt would continue to benefit from one more month of skilled PT to address his remaining impairments and to promote a return to his PLOF. Patient goals met ST,5,7 LT,5 Plan Plan Continue as per initial POC Frequency of Therapy 1-2/week Duration of therapy 4 weeks Time and Billing Re-Eval Time 10 Re-Eval Billing 1 Units Charge for PT Yes reassessment? PHYSICIAN CERTIFICATION: I certify the specified therapy services for Alverto Thomson are required, authorized, and reviewed every 30 days.
== END 2025-03-06 23:59 | disposition home or self-care (01) ==
LOC: PT 08:00
PROVIDERS: Visit Provider Internal Medicine
DX: M54.42 Lumbago with sciatica, left side (principal)
CPT/HCPCS: 97010; 97014; 97110; 97164; G0283

== ENCOUNTER → 2025-03-13 07:56 | Outpatient (RCR) | payer BC, SELFPAY | LOC: PT 07:56 | PROVIDERS: Visit Provider Internal Medicine | DX: M54.50 Low back pain, unspecified (principal) | CPT/HCPCS: 97014; 97110; G0283 ==

== ENCOUNTER 2025-03-13 09:35 | Outpatient (CLI) | payer BC, SELFPAY ==
--- OUTSIDE RECORDS SUMMARY | 2025-03-13 09:38 | XMS_ITS | Clinical Summary ---
Author Organization [facility] Address [address] [place] [address] Phone Care Team Providers Care Manager Online Name Role Phone [place] Team [facility] Unavailab le Allergies No known active allergies Medications atorvastatin (LIPITOR) 40 mg Oral TabletIndications:H yperlipidemia, unspecified hyperlipidemia type TAKE 1 TABLET DAILY 90 Tablet 3 3 Active pantoprazole (PROTONIX) 40 mg Oral Tablet, Delayed Release (E.C.)Indications:G astroesophageal reflux disease, unspecified whether esophagitis present TAKE 1 TABLET DAILY 90 Tablet 3 3 Active Active Problems Problem Noted Date Diagnosed Date Family history of gastric cancer 11/12/2020 Assessment & Plan (11/12/2020 12:01 PM EDT): +FHx of Gastric Cancer in brother ( at 34 y/o). Pt scoped in 2013, was told did not need to f/u. -Will give GI referral given FHx and GERD Well adult exam 11/12/2020 Assessment & Plan (11/12/2020 11:59 AM EDT): Pt here for refills today without other concerns aside from bumps around mouth. Pt encouraged to try different kind of mask and use topical steroid cream if sx worsen. Healthcare maintenance 12/27/2018 Assessment & Plan (12/27/2018 3:42 PM EDT): Check routine labs UTD on vaccinations HLD (hyperlipidemia) 08/12/2011 Overview (11/11/2020): Atorvastatin 40mg Last checked 2018 GERD (gastroesophageal reflux disease) 0 Overview (11/11/2020): Protonix 40mg Assessment & Plan (11/12/2020 12:00 PM EDT): Sx overall controlled with PPI and avoiding certain foods; however, given pt has been on PPI for several years with episodes of uncontrolled sx and +FHx of Gastric Cancer in brother, will give GI referral. Assessment & Plan (12/27/2018 3:30 PM EDT): C/w protonix 40 mg daily Had prior EGD - records requested Given GERD diet to adhere to Hx brother with gastric cancer - monitor closely Resolved Problems Problem Noted Date Diagnosed Date Resolved Date Abnormal laboratory test 10/12/200908/2020 Immunizations Immunization Administration Dates Next Due Influenza Vaccine, Unspecified Formulation 06/27 Td, Unspecified Formulation 08/13/2003 Tdap 06/27/2013 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 Date Comments GERD (gastroesophageal reflux disease) Family History 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 Relation Name Comments Other Brother Heart Disease Father No Known Problems Maternal Grandfather No Known Problems Maternal Grandmother Skin Cancer - melanoma Mother No Known Problems Other No Known Problems Paternal Grandfather No Known Problems Paternal Grandmother No Known Problems Sister Allergies Neg Hx Bleeding Prob Neg Hx Cancer Neg Hx Hearing Loss Neg Hx Migraines Neg Hx Thyroid Disease Neg Hx Relation Name Status Comments Brother Father Maternal Grandfather Maternal Grandmother Mother Other Paternal Grandfather Paternal Grandmother Sister Social History Tobacco Use Types Packs/Day Years Used Date Smoking Tobacco: Never Smokeless Tobacco: Former Chew Quit: 12/11/2016 Tobacco Cessation:Counseling Given: Yes Alcohol Use Standard Drinks/Week Comments Yes 0 (1 standard drink = 0.6 oz pur e alcohol) occasional, rarely PHQ-2 Answer Date Recorded PHQ-2 Total Score 0 11/12/2020 Sexually Active Control Partners Comments Yes Female Sex and Gender Information Value Date Recorded Sex Assigned at Not on file Legal Sex Male 10:32 AM EDT Gender Identity Not on file Sexual Orientation Not on file Occupation Industry Job Start Date Job End Date [employer] Not on file Not on file Not o n file Obstetrics History Last Filed Vital Signs Vital Sign Reading Time Taken Comments Blood Pressure 134/78 11/12/2020 9:15 AM EDT Pulse 68 11/12/2020 9:15 AM EDT Temperature 36 C (96.8 F) 11/12/2020 9:15 AM EDT Respiratory Rate 18 11/12/2020 9:15 AM EDT Oxygen Saturation 97% 01/20/2014 11:24 AM EDT Inhaled Oxygen Concentration - - Weight 98.4 kg (217 lb) 11/12/2020 9:15 AM EDT Height 177.8 cm (5' 10 ) 11/12/2020 9:15 AM EDT Body Mass Index 31.14 11/12/2020 9:15 AM EDT Plan of Treatment Health Maintenance Due Date Last Done Comments Hepatitis B Vaccine (1 of 3 - 19+ 3-dose series) 1997 Annual Wellness Exam 12/28/2019 12/27/2018 DTaP/TDaP/Td (2 - Td or Tdap) 06/27/2023, 08/13/2003 Cologuard 2023 Colon Cancer Screening 2023 Colonoscopy 2023 FIT 2023 Sigmoidoscopy 2023 Virtual Colonography 2023 COVID-19 Vaccine (1 - 2023-2 5 season) 2024 Influenza Vaccine (#1) 2025 06/27/2013 Meningococcal B Vaccine Aged Out No l onger eligible based on patient's age to complete this topic Pneumococcal Vaccine 0-49 Aged Out No longer eligible based on patient's age to complete this topic Goals Goal Patient Goal Type Associated Problems Recent Progress Patient-Stated? Author Maintain a healthy diet, exercise regularly and maintain an ideal body weight General No Benedicto Keyes MD Stay Tobacco Free Lifestyle No Shmuel Roque MD Insurance SARAH PPO SARAH PPO SARAH PPO Care Teams Manager Online Relationship Specialty Start Date End Date Jose Topete, [facility] [address] [place] [address] [facility] 06/11/19
[2025-03-13 10:35] LABS: Albumin Level 3.9 g/dl (3.5-5.0)
[2025-03-13 10:36] LABS: Chloride 103 mmol/L (98-107); Potassium 4.5 mmoL/L (3.5-5.1); Sodium 137 mmol/L (136-145)
[2025-03-13 10:38] LABS: Alanine Aminotransferase 30 U/L (12-78); Aspartate Amino Transferase 28 U/L (17-59); Blood Urea Nitrogen 11 mg/dl (9-20); Creatinine,Serum 0.80 mg/dl (0.66-1.25); Estimated Glomerular Filt Rate 104 ml/min (>60); GFR (African American) 126 ML/MIN (>60)
[2025-03-13 10:39] LABS: Albumin/Globulin Ratio 1.1 (1.1-1.8); Alkaline Phosphatase 84 U/L (38-126); Anion Gap 7.5 mEq/L (5-15); Bilirubin,Total 0.4 mg/dl (0.2-1.3); Calcium 9.7 mg/dl (8.4-10.2); Carbon Dioxide 31 mmol/L (22.0-30.0); Cholesterol 179 mg/dl (140-200); Globulin 3.6 g/dL (1.3-3.2); Glucose 104 mg/dl (74-100); HDL Cholesterol 38 mg/dl (40-60); Magnesium 2.2 mg/dl (1.6-2.3); Total Protein,Serum 7.5 g/dl (6.3-8.2); Triglycerides 188 mg/dl (30-150)
[2025-03-13 11:48] LABS: Vitamin B12 371 pg/mL (239-931)
== END 2025-03-13 23:59 | disposition home or self-care (01) ==
LOC: LAB 09:36
PROVIDERS: PCP Nurse Practitioner Family; Visit Provider Nurse Practitioner Family
DX: K21.9 Gastro-esophageal reflux disease without esophagitis (principal); E78.5 Hyperlipidemia, unspecified
CPT/HCPCS: 36415; 80053; 80061; 82607; 83013; 83735